=== PATIENT | female | born 1995 | race Caucasian/White ===

== ENCOUNTER → 2016-10-04 | Outpatient (CLI) | payer OTHER ==
--- NOTE | 2016-10-04 15:42 | US ---
EXAMINATION TYPE: US OB >= 14 wk fetus third trimester DATE OF EXAM: 10/04/2016 COMPARISON: None CLINICAL HISTORY: Z34.80 Supervision of other normal TECHNIQUE: Transabdominal (TA) GESTATIONAL AGE / DATING Physician Established: (36 weeks/5 days) EDC: 10/27/2016 Dates by LMP: unknown Dates by First Scan: this is first scan here Dates by Current Scan: (37 weeks/1 days) EDC: 10/24/2016 SURVEY IUP: Single PLACENTA: Posterior PREVIA: No Previa AGULIA: 15.3 cm Normal CERVICAL LENGTH (transabdominal: norm > 3.0cm): 3.3 cm BIOMETRY PRESENTATION: Vertex BPD: 8.9 cm 36 weeks / 1 days HC: 32.7 cm 37 weeks / 1 days AC: 34.0 cm 38 weeks / 0 days FL: 7.2 cm 37 weeks / 0 days ESTIMATED WEIGHT IN GRAMS: 3184 grams ESTIMATED WEIGHT IN LBS/OZS: 7 lbs. 0 oz. WEIGHT PERCENTAGE BASED ON ESTABLISHED DATES: 72% HC/AC: 1.0 Normal FL/AC: 21% Normal HEART RATE: 133 bpm RHYTHM: Normal Single live intrauterine gestation is confirmed. Normal cephalad presentation to fetus is present. Th ere is no ultrasound evidence for placenta previa. Amniotic fluid index is calculated within normal l imits. biometry measurements are concordant and felt within normal limits. IMPRESSION: As above
== END | disposition home or self-care (01) ==
LOC: RADUSWWP 14:54
PROVIDERS: ATTEND Obstetrics & Gynecology
DX: Z34.83 Encounter for supervision of other normal pregnancy, third trimester (principal); Z3A.37 37 weeks gestation of pregnancy
CPT/HCPCS: 76805

== ENCOUNTER 2018-05-13 15:48 | Emergency (ER) | payer OTHER ==
[2018-05-13] MEDS ORDERED: SODIUM CHLORIDE 0.9% 1,000 ML IV STA ×2 (16:21)
[2018-05-13] MEDS ORDERED: ONDANSETRON 4 MG/2 ML VIAL IVP STA (16:21)
[2018-05-13] MEDS ORDERED: KETOROLAC 30 MG/ML 1 ML VIAL IVP STA (16:21)
--- NOTE | 2018-05-13 16:41 | ED ---
General Adult HPI - General Chief complaint: Urogenital Stated complaint: Kidney infection Time Seen by Provider: 05/13/18 16:12 Source: patient Mode of arrival: ambulatory Limitations: no limitations - History of Present Illness Initial comments: This 22-year-old white female presented with a complaint of left flank pain. She states that this came on 4 days ago and was gradual in onset. She states that it is fairly severe and worse if she coughs or bears down. She denies any actual injuries. She also has had some nausea but no vomiting. She denies any known fever. She also has had a malodorous scent of her urine and is worried about a kidney infection. She states that she has had some increased urinary frequency but denies any hematuria or dysuria. She denies any previously known kidney infections. She states that she is not currently as she is on her period. No other complaints or modifying factors. - Related Data Home Medications Medication Instructions Recorded Confirmed Ibuprofen [Motrin Ib] 400 mg PO Q6HR PRN 05/13/18 05/13/18 Topiramate 50 mg PO HS 05/13/18 05/13/18 diphenhydrAMINE HCL [Benadryl] 25 mg PO DAILY PRN 05/13/18 05/13/18 Previous Rx's Medication Instructions Recorded Cyclobenzaprine [Flexeril] 10 mg PO TID PRN #20 tab 05/13/18 Ibuprofen [Motrin] 800 mg PO Q8H PRN #20 tab 05/13/18 Allergies Allergy/AdvReac Type Severity Reaction Status Date / Time banana Allergy Anaphylaxis Verified 05/13/18 16:08 Review of Systems ROS Statement: Those systems with pertinent positive or pertinent negative responses have been documented in the HPI. ROS Other: All systems not noted in ROS Statement are negative. Past Medical History Past Medical History: No Reported History, Asthma Additional Past Medical History / Comment(s): ovarian cyst History of Any Multi-Drug Resistant Organisms: None Reported Past Surgical History: No Surgical Hx Reported Past Anesthesia/Blood Transfusion Reactions: No Reported Reaction Past Psychological History: Depression Smoking Status: Former smoker Past Alcohol Use History: None Reported Past Drug Use History: Marijuana - Past Family History Mother Family Medical History: No Reported History General Exam - General Exam Comments Initial Comments: GENERAL: The patient is well nourished and well hydrated. VITAL SIGNS: Heart rate, blood pressure, respiratory rate reviewed as recorded in nurse's notes. EYES: Pupils are round and reactive. Extraocular movements are intact. No conjunctival / lid redness or swelling. ENT: No external evidence of injury, swelling, or ecchymosis. Airway is patent. Throat is clear. NECK: Nontender. No swelling or evidence of injury. No subcutaneous emphysema. Trachea is midline. No thyroid mass. HEART: Regular rate and rhythm. Good peripheral pulses. LUNGS/CHEST: Breath sounds clear and equal bilaterally. No rales, rhonchi, or wheezes. No ecchymosis, subcutaneous emphysema, or tenderness. ABDOMEN: Abdomen soft without tenderness. No palpable masses or organomegaly. No peritoneal signs. No abdominal wall swelling or ecchymosis. There is tenderness noted to the left flank. EXTREMITIES: No extremity tenderness. Normal muscle tone and function. No thoracolumbar tenderness. NEUROLOGIC: Sensation is grossly intact. Cranial nerve exam reveals face is symmetrical, tongue is midline, speech is clear. SKIN: No abrasions or ecchymosis is noted. No induration or masses noted. PSYCHIATRIC: Alert and oriented. Appropriate behavior and judgment. Limitations: no limitations Course Vital Signs 05/13/18 15:49 Temperature 98.2 F Pulse Rate 81 Respiratory 16 Rate Blood Pressure 128/84 O2 Sat by Pulse 97 Oximetry Medical Decision Making - Medical Decision Making The patient is seen and examined. All diagnostics are reviewed. An IV is started and she is hydrated. She received Zofran 4 mg IV as well as Toradol 30 mg IV. The laboratory was reviewed and is unremarkable. The computed tomography scan of the abdomen and pelvis does not show any acute abnormalities. The patient is feeling improved on recheck. The exact cause of her symptoms is not definitively determine but it is felt as though it is likely related to a musculoskeletal problem such as a back strain. She does request a work note and this is given. It is felt as though she is stable for discharge and leaves in no distress. - Lab Data Result diagrams: 05/13/18 16:50 05/13/18 16:50 Lab Results 05/13/18 05/13/18 05/13/18 Range/Units 16:50 16:50 16:50 WBC 4.1 (3.8-10.6) k/uL RBC 4.90 (3.80-5.40) m/uL Hgb 14.3 (11.4-16.0) gm/dL Hct 42.6 (34.0-46.0) % MCV 86.9 (80.0-100.0) fL MCH 29.1 (25.0-35.0) pg MCHC 33.5 (31.0-37.0) g/dL RDW 13.6 (11.5-15.5) % Plt Count 161 (150-450) k/uL Neutrophils % 44 % Lymphocytes % 38 % Monocytes % 10 % Eosinophils % 3 % Basophils % 0 % Neutrophils # 1.8 (1.3-7.7) k/uL Lymphocytes # 1.5 (1.0-4.8) k/uL Monocytes # 0.4 (0-1.0) k/uL Eosinophils # 0.1 (0-0.7) k/uL Basophils # 0.0 (0-0.2) k/uL Sodium 142 (137-145) mmol/L Potassium 3.8 (3.5-5.1) mmol/L Chloride 111 H (98-107) mmol/L Carbon Dioxide 22 (22-30) mmol/L Anion Gap 9 mmol/L BUN 12 (7-17) mg/dL Creatinine 0.83 (0.52-1.04) mg/dL Est GFR (CKD-EPI)AfAm >90 (>60 ml/min/1.73 sqM) Est GFR (CKD-EPI)NonAf >90 (>60 ml/min/1.73 sqM) Glucose 89 (74-99) mg/dL Calcium 9.5 (8.4-10.2) mg/dL Total Bilirubin 0.2 (0.2-1.3) mg/dL AST 19 (14-36) U/L ALT 17 (9-52) U/L Alkaline Phosphatase 62 (38-126) U/L Total Protein 6.4 (6.3-8.2) g/dL Albumin 4.1 (3.5-5.0) g/dL Urine Color Urine Appearance (Clear) Urine pH (5.0-8.0) Ur Specific [place] (1.001-1.035) Urine Protein (Negative) Urine Glucose (UA) (Negative) Urine Ketones (Negative) Urine Blood (Negative) Urine Nitrite (Negative) Urine Bilirubin (Negative) Urine Urobilinogen (<2.0) mg/dL Ur Leukocyte Esterase (Negative) Urine HCG, Qual Not Detected (Not Detectd) 05/13/18 Range/Units 16:50 WBC (3.8-10.6) k/uL RBC (3.80-5.40) m/uL Hgb (11.4-16.0) gm/dL Hct (34.0-46.0) % MCV (80.0-100.0) fL MCH (25.0-35.0) pg MCHC (31.0-37.0) g/dL RDW (11.5-15.5) % Plt Count (150-450) k/uL Neutrophils % % Lymphocytes % % Monocytes % % Eosinophils % % Basophils % % Neutrophils # (1.3-7.7) k/uL Lymphocytes # (1.0-4.8) k/uL Monocytes # (0-1.0) k/uL Eosinophils # (0-0.7) k/uL Basophils # (0-0.2) k/uL Sodium (137-145) mmol/L Potassium (3.5-5.1) mmol/L Chloride (98-107) mmol/L Carbon Dioxide (22-30) mmol/L Anion Gap mmol/L BUN (7-17) mg/dL Creatinine (0.52-1.04) mg/dL Est GFR (CKD-EPI)AfAm (>60 ml/min/1.73 sqM) Est GFR (CKD-EPI)NonAf (>60 ml/min/1.73 sqM) Glucose (74-99) mg/dL Calcium (8.4-10.2) mg/dL Total Bilirubin (0.2-1.3) mg/dL AST (14-36) U/L ALT (9-52) U/L Alkaline Phosphatase (38-126) U/L Total Protein (6.3-8.2) g/dL Albumin (3.5-5.0) g/dL Urine Color Light Yellow Urine Appearance Clear (Clear) Urine pH 5.5 (5.0-8.0) Ur Specific [place] 1.011 (1.001-1.035) Urine Protein Negative (Negative) Urine Glucose (UA) Negative (Negative) Urine Ketones Negative (Negative) Urine Blood Negative (Negative) Urine Nitrite Negative (Negative) Urine Bilirubin Negative (Negative) Urine Urobilinogen <2.0 (<2.0) mg/dL Ur Leukocyte Esterase Negative (Negative) Urine HCG, Qual (Not Detectd) Disposition Clinical Impression: Left flank pain, Nausea, Low back strain Disposition: HOME SELF-CARE Condition: Good Instructions (If sedation given, give patient instructions): Low Back Strain ( ED) Prescriptions: Cyclobenzaprine [Flexeril] 10 mg PO TID PRN #20 tab PRN Reason: Pain Ibuprofen [Motrin] 800 mg PO Q8H PRN #20 tab PRN Reason: Pain Is patient prescribed a controlled substance at d/c from ED?: No Referrals: Audi Mae MD [Primary Care Provider] - 1-2 days Time of Disposition: 19:04
[2018-05-13 17:05] LABS: Appearance,Urine Clear (Clear); Basophils % (A) 0 %; Bilirubin,Urine Negative (Negative); Blood,Urine Negative (Negative); Color,Urine Light Yellow; Eosinophils # (A) 0.1 k/uL (0-0.7); Eosinophils % (A) 3 %; Glucose,Urine (UA) Negative (Negative); HCT 42.6 % (34.0-46.0); HGB 14.3 gm/dL (11.4-16.0); Ketones,Urine Negative (Negative); Leukocyte Esterase,Urine Negative (Negative); Lymphocytes # (A) 1.5 k/uL (1.0-4.8); Lymphocytes % (A) 38 %; MCH 29.1 pg (25.0-35.0); MCHC 33.5 g/dL (31.0-37.0); MCV 86.9 fL (80.0-100.0); Mean Platelet Volume 8.7; Monocytes # (A) 0.4 k/uL (0-1.0); Monocytes % (A) 10 %; Neutrophils # (A) 1.8 k/uL (1.3-7.7); Neutrophils % (A) 44 %; Nitrite,Urine Negative (Negative); PH, Urine 5.5 (5.0-8.0); Platelet Count 161 k/uL (150-450); Protein,Urine Negative (Negative); RDW 13.6 % (11.5-15.5); Specific Gravity,Urine 1.011 (1.001-1.035); Urobilinogen,Urine <2.0 mg/dL (<2.0); WBC 4.1 k/uL (3.8-10.6)
[2018-05-13 17:13] LABS: ALT 17 U/L (9-52); AST 19 U/L (14-36); Albumin 4.1 g/dL (3.5-5.0); Alkaline Phosphatase 62 U/L (38-126); Anion Gap 9 mmol/L; Blood Urea Nitrogen 12 mg/dL (7-17); Calcium 9.5 mg/dL (8.4-10.2); Carbon Dioxide 22 mmol/L (22-30); Chloride 111 mmol/L (98-107); Glucose 89 mg/dL (74-99); Potassium 3.8 mmol/L (3.5-5.1); Sodium 142 mmol/L (137-145); Total Bilirubin 0.2 mg/dL (0.2-1.3); Total Protein 6.4 g/dL (6.3-8.2)
--- NOTE | 2018-05-13 18:21 | CT ---
EXAMINATION TYPE: CT abdomen pelvis wo con DATE OF EXAM: 05/13/2018 COMPARISON: None HISTORY: LEFT FLANK PAIN X5 DAYS CT DLP: 827.3 mGycm Automated exposure control for dose reduction was used. TECHNIQUE: Helical acquisition of images was performed from the lung bases through the pelvis. FINDINGS: Within the limits of noncontrast CT the following observations are made: LUNG BASES: No significant abnormality is appreciated. LIVER/GB: No significant abnormality is appreciated. PANCREAS: No significant abnormality is seen. SPLEEN: No significant abnormality is seen. ADRENALS: No significant abnormality is seen. KIDNEYS: No significant abnormality is seen. FREE AIR: No free air is visualized RETROPERITONEAL ADENOPATHY: None visualized REPRODUCTIVE ORGANS: No significant abnormality is seen. A vaginal tampon is noted. URINARY BLADDER: No significant abnormality is seen. PELVIC ADENOPATHY: None visualized. OSSEOUS STRUCTURES: No significant abnormality is seen. BOWEL: No significant abnormality is seen. IMPRESSION: NO ACUTE PROCESS. NO CT CORRELATE FOR THE PATIENT'S LEFT-SIDED FLANK PAIN.
[2018-05-13 19:22] VITALS: BP 132/68; PULSE 78; RESP 18; TEMP 98.4
== END 2018-05-13 19:22 | disposition home or self-care (01) ==
LOC: EC 15:48
DX: S39.012A Strain of muscle, fascia and tendon of lower back, initial encounter (principal); R10.9 Unspecified abdominal pain; R11.0 Nausea; Z87.891 Personal history of nicotine dependence; Z79.899 Other long term (current) drug therapy; Z91.018 Allergy to other foods
CPT/HCPCS: 36415; 80053; 85025; 81003; 81025; 87086; 74176; 99284; 96374; 96375; 96361 ×2; J2405; J1885

== ENCOUNTER 2018-10-25 20:55 | Emergency (ER) | payer OTHER ==
[2018-10-25 22:17] LABS: ALT 11 U/L (9-52); AST 16 U/L (14-36); African American GFR (CKD) >90 (>60 ml/min/1.73 sqM); Albumin 3.5 g/dL (3.5-5.0); Alkaline Phosphatase 49 U/L (38-126); Anion Gap 5 mmol/L; Blood Urea Nitrogen 9 mg/dL (7-17); Calcium 8.5 mg/dL (8.4-10.2); Carbon Dioxide 25 mmol/L (22-30); Chloride 110 mmol/L (98-107); Glucose 89 mg/dL (74-99); Potassium 3.5 mmol/L (3.5-5.1); Sodium 140 mmol/L (137-145); Total Bilirubin 0.3 mg/dL (0.2-1.3); Total Protein 5.4 g/dL (6.3-8.2)
[2018-10-25 22:24] LABS: Basophils % (A) 0 %; Eosinophils # (A) 0.3 k/uL (0-0.7); Eosinophils % (A) 2 %; HCT 38.5 % (34.0-46.0); Lymphocytes # (A) 2.8 k/uL (1.0-4.8); Lymphocytes % (A) 24 %; MCH 28.5 pg (25.0-35.0); MCHC 33.7 g/dL (31.0-37.0); MCV 84.7 fL (80.0-100.0); Monocytes # (A) 0.7 k/uL (0-1.0); Monocytes % (A) 6 %; Neutrophils # (A) 7.8 k/uL (1.3-7.7); Neutrophils % (A) 67 %; Platelet Count 167 k/uL (150-450); RBC 4.55 m/uL (3.80-5.40); RDW 15.3 % (11.5-15.5); WBC 11.7 k/uL (3.8-10.6)
--- NOTE | 2018-10-25 23:07 | ED ---
Abdominal Pain HPI - General Source: patient Mode of arrival: ambulatory <Kamryn Jean - Last Filed: 10/26/18 02:29> <Kindra Nicholson - Last Filed: 10/27/18 05:00> - General Chief Complaint: Abdominal Pain Stated Complaint: Early Bleeding Time Seen by Provider: 10/25/18 21:34 - History of Present Illness Initial Comments: 22-year-old female presenting today for chief complaint of . A2 Patient states she had positive test at home. She states she has had cramping and bleeding today. Patient states her last menstrual period was about a month ago. Patient denies vomiting, severe abdominal pain chest pain stress breath per she describes the cramping as period like. Patient denies vaginal discharge, pain with sex, vaginal odor. Remaining review of systems negative upon arrival patient appears well no signs of acute distress (Kamryn Jean) - Related Data Home Medications Medication Instructions Recorded Confirmed Pnv No.95/Ferrous Fum/Folic AC 1 tab PO DAILY 10/25/18 10/25/18 [ Multivitamin Tablet] Potassium 99 mg PO DAILY 10/25/18 10/25/18 Allergies Allergy/AdvReac Type Severity Reaction Status Date / Time banana Allergy Anaphylaxis Verified 10/25/18 21:21 Review of Systems ROS Other: All systems not noted in ROS Statement are negative. <Kamryn Jean - Last Filed: 10/26/18 02:29> ROS Other: All systems not noted in ROS Statement are negative. <Kindra Nicholson - Last Filed: 10/27/18 05:00> ROS Statement: Those systems with pertinent positive or pertinent negative responses have been documented in the HPI. Past Medical History Past Medical History: No Reported History, Asthma Additional Past Medical History / Comment(s): ovarian cyst History of Any Multi-Drug Resistant Organisms: None Reported Past Surgical History: No Surgical Hx Reported Past Anesthesia/Blood Transfusion Reactions: No Reported Reaction Past Psychological History: Depression Smoking Status: Former smoker Past Alcohol Use History: None Reported Past Drug Use History: Marijuana - Past Family History Mother Family Medical History: No Reported History <Kamryn Jean - Last Filed: 10/26/18 02:29> General Exam <Kamryn Jean - Last Filed: 10/26/18 02:29> - General Exam Comments Initial Comments: General: The patient is awake and alert, in no distress, and does not appear acutely ill. Eye: +3 mm pupils are equal, round and reactive to light, extra-ocular movements are intact. No nystagmus. There is normal conjunctiva bilaterally. No signs of icterus. Ears, nose, mouth and throat: There are moist mucous membranes and no oral lesions. Neck: The neck is supple, there is no tenderness or JVD. Cardiovascular: There is a regular rate and rhythm. No murmur, rub or gallop is appreciated. Respiratory: Lungs are clear to auscultation, respirations are non-labored, breath sounds are equal. No wheezes, stridor, rales, or rhonchi. Gastrointestinal: Soft, non-distended, non-tender abdomen without masses or organomegaly noted. There is no rebound or guarding present. No CVA tenderness. Bowel sounds are unremarkable. Pelvic: No external lesions, cervical os closed. Blood in the vaginal vault. No adnexal or cervical motion tenderness. No discharge or odor. Musculoskeletal: Normal ROM, no tenderness. Strength 5/5. Sensation intact. Pu lses equal bilaterally 2+. Neurological: A&O x 3. CN II-XII intact, There are no obvious motor or sensory deficits. Coordination appears grossly intact. Speech is normal. Skin: Skin is warm and dry and no rashes or lesions are noted. Psychiatric: Cooperative, appropriate mood & affect, normal judgment. (Kamryn Jean) Course Vital Signs 10/25/18 10/26/18 21:11 00:04 Temperature 98.6 F 98.0 F Pulse Rate 90 69 Respiratory 16 18 Rate Blood Pressure 133/81 109/70 O2 Sat by Pulse 99 99 Oximetry Medical Decision Making - Lab Data Result diagrams: 10/25/18 21:46 10/25/18 21:46 <Kamryn Jean - Last Filed: 10/26/18 02:29> - Lab Data Result diagrams: 10/25/18 21:46 10/25/18 21:46 <Kindra Nicholson - Last Filed: 10/27/18 05:00> - Medical Decision Making 22-year-old female presented for . She states she had a positive home test. Last menstrual period was September 23. Urine HCG (-) US (-) for . Blood type B+. Patient labs stable. At this time I feel this is most likely miscarriage vs menstruation given amount of bleeding. Patient is to f/u with OBGYN and return for worsening pain to the ER. She is agreeable care plan discharge at this time. (Kamryn Jean) I was available for consultation in the emergency department. The history and physical exam were done by the Midlevel Provider. Medical decision making was done by the Midlevel Provider. I have reviewed the chart, however was not consulted specifically or made aware of this patient by the above midlevel provider and did not personally evaluate, interact with, or disposition this patient on the day of their visit Chart was dictated using [employer] dictation software. Attempts were made to corre ct any dictation errors however some typographical errors may persist. (Kindra Nicholson) - Lab Data Lab Results 10/25/18 10/25/18 10/25/18 Range/Units 21:46 21:46 21:46 WBC 11.7 H (3.8-10.6) k/uL RBC 4.55 (3.80-5.40) m/uL Hgb 13.0 (11.4-16.0) gm/dL Hct 38.5 (34.0-46.0) % MCV 84.7 (80.0-100.0) fL MCH 28.5 (25.0-35.0) pg MCHC 33.7 (31.0-37.0) g/dL RDW 15.3 (11.5-15.5) % Plt Count 167 (150-450) k/uL Neutrophils % 67 % Lymphocytes % 24 % Monocytes % 6 % Eosinophils % 2 % Basophils % 0 % Neutrophils # 7.8 H (1.3-7.7) k/uL Lymphocytes # 2.8 (1.0-4.8) k/uL Monocytes # 0.7 (0-1.0) k/uL Eosinophils # 0.3 (0-0.7) k/uL Basophils # 0.0 (0-0.2) k/uL Sodium 140 (137-145) mmol/L Potassium 3.5 (3.5-5.1) mmol/L Chloride 110 H (98-107) mmol/L Carbon Dioxide 25 (22-30) mmol/L Anion Gap 5 mmol/L BUN 9 (7-17) mg/dL Creatinine 0.73 (0.52-1.04) mg/dL Est GFR (CKD-EPI)AfAm >90 (>60 ml/min/1.73 sqM) Est GFR (CKD-EPI)NonAf >90 (>60 ml/min/1.73 sqM) Glucose 89 (74-99) mg/dL Calcium 8.5 (8.4-10.2) mg/dL Total Bilirubin 0.3 (0.2-1.3) mg/dL AST 16 (14-36) U/L ALT 11 (9-52) U/L Alkaline Phosphatase 49 (38-126) U/L Total Protein 5.4 L (6.3-8.2) g/dL Albumin 3.5 (3.5-5.0) g/dL Urine HCG, Qual (Not Detectd) Trichomonas Ag (Rapid) (Negative) Blood Type O Positive Blood Type Recheck No Antibody Screen NEGATIVE Spec Expiration Date 10/28/2018 - 234510/25/18 10/26/18 Range/Units 21:50 00:03 WBC (3.8-10.6) k/uL RBC (3.80-5.40) m/uL Hgb (11.4-16.0) gm/dL Hct (34.0-46.0) % MCV (80.0-100.0) fL MCH (25.0-35.0) pg MCHC (31.0-37.0) g/dL RDW (11.5-15.5) % Plt Count (150-450) k/uL Neutrophils % % Lymphocytes % % Monocytes % % Eosinophils % % Basophils % % Neutrophils # (1.3-7.7) k/uL Lymphocytes # (1.0-4.8) k/uL Monocytes # (0-1.0) k/uL Eosinophils # (0-0.7) k/uL Basophils # (0-0.2) k/uL Sodium (137-145) mmol/L Potassium (3.5-5.1) mmol/L Chloride (98-107) mmol/L Carbon Dioxide (22-30) mmol/L Anion Gap mmol/L BUN (7-17) mg/dL Creatinine (0.52-1.04) mg/dL Est GFR (CKD-EPI)AfAm (>60 ml/min/1.73 sqM) Est GFR (CKD-EPI)NonAf (>60 ml/min/1.73 sqM) Glucose (74-99) mg/dL Calcium (8.4-10.2) mg/dL Total Bilirubin (0.2-1.3) mg/dL AST (14-36) U/L ALT (9-52) U/L Alkaline Phosphatase (38-126) U/L Total Protein (6.3-8.2) g/dL Albumin (3.5-5.0) g/dL Urine HCG, Qual Not Detected (Not Detectd) Trichomonas Ag (Rapid) Negative (Negative) Blood Type Blood Type Recheck Antibody Screen Spec Expiration Date Disposition Is patient prescribed a controlled substance at d/c from ED?: No Time of Disposition: 23:13 <Kamryn Jean L - Last Filed: 10/26/18 02:29> <Kindra Nicholson P - Last Filed: 10/27/18 05:00> Clinical Impression: Threatened miscarriage Disposition: HOME SELF-CARE Condition: Good Instructions (If sedation given, give patient instructions): Threatened Miscarriage (ED) Additional Instructions: Please use medication as discussed. Please follow-up with OBGYN within next 1-2 weeks. Please return to emergency room if the symptoms increase or worsen or for any other concerns. Referrals: Audi Mae MD [Primary Care Provider] - 1-2 days Brianna Vera DO [Doctor of Osteopathic Medicine] - 1-2 days
--- NOTE | 2018-10-25 23:08 | US ---
EXAM: US First Trimester, Transabdominal CLINICAL HISTORY: ITS.REASON US Reason: pain TECHNIQUE: Real-time transabdominal obstetrical ultrasound of the maternal pelvis and a first trimester with image documentation. COMPARISON: None. FINDINGS: Gestation: Not visualized. Placenta/amniotic fluid: Not visualized. Uterus/cervix: Uterus measures 7.9 x 4.6 x 5.7 cm. Endometrial stripe measures 5 mm and appears normal. No myometrial mass. Ovaries: Right ovary measures 2.5 x 1.3 x 1.6 cm. Left ovary measures 3.7 x 1.3 x 1.7 cm. Left adnexal cystic lesion measuring up to 1.9 cm. No mass. Free fluid: No free fluid. IMPRESSION: No intrauterine identified. This may represent an early normal or abnormal . Clinical correlation is recommended. Recommend follow-up dating ultrasound at approximately 8-10 weeks gestational age.
[2018-10-26 00:07] VITALS: BP 109/70; PULSE 69; RESP 18; TEMP 98
[2018-10-27 14:18] LABS: C. trachomatis,PCR Negative (Neg,Equiv); Chlamydia trachomatis Source Vagina
[2018-10-27 14:19] LABS: N. gonorrhoeae,PCR Negative (Neg,Equiv); Neisseria Source Vagina
== END 2018-10-26 00:07 | disposition home or self-care (01) ==
LOC: EC 20:55
DX: O20.0 Threatened abortion (principal); Z3A.00 Weeks of gestation of pregnancy not specified; Z87.42 Personal history of other diseases of the female genital tract; Z87.891 Personal history of nicotine dependence; Z91.018 Allergy to other foods
CPT/HCPCS: 36415; 76801; 80053; 81025; 85025; 86850; 86900; 86901; 87070; 87205; 87491; 87591; 87808; 99284

== ENCOUNTER 2019-07-23 06:15 | Inpatient (IN) | payer OTHER ==
[2019-07-23] MEDS ORDERED: LIDOCAINE 0.5% (PF) 5 MG/ML (50 ML SDV) SQ PRN (06:42)
[2019-07-23] MEDS ORDERED: TERBUTALINE 1 MG/ML VIAL SQ PRN (06:42)
[2019-07-23] MEDS ORDERED: METHYLERGONOVINE 0.2 MG/ML 1 ML AMP IM PRN (06:42)
[2019-07-23] MEDS ORDERED: PENICILLIN G POTASSIUM 5,000,000 UNIT in DEXTROSE 5% IN WATER 100 ML IVPB STA ×2 (06:42)
[2019-07-23] MEDS ORDERED: OXYTOCIN 10 UNIT/ML 1 ML VIAL IM PRN (06:42)
[2019-07-23] MEDS ORDERED: CARBOPROST TROMETHAMINE 250 MCG/ML 1 ML AMP IM PRN (06:42)
[2019-07-23] MEDS ORDERED: OXYTOCIN 30 UNITS/500 ML NS 30 UNIT in SALINE 1 500ML.BAG IV SCH (06:45)
[2019-07-23] MEDS: LACTATED RINGERS 1,000 ML IV SCH ×2 (06:48→15:46)
[2019-07-23 07:28] LABS: Basophils % (A) 0 %; Eosinophils # (A) 0.1 k/uL (0-0.7); Eosinophils % (A) 1 %; HCT 37.2 % (34.0-46.0); HGB 12.4 gm/dL (11.4-16.0); Lymphocytes # (A) 1.4 k/uL (1.0-4.8); Lymphocytes % (A) 12 %; MCH 28.9 pg (25.0-35.0); MCHC 33.3 g/dL (31.0-37.0); MCV 86.6 fL (80.0-100.0); Mean Platelet Volume 9.8; Monocytes # (A) 0.6 k/uL (0-1.0); Monocytes % (A) 5 %; Neutrophils # (A) 9.9 k/uL (1.3-7.7); Neutrophils % (A) 81 %; Platelet Count 151 k/uL (150-450); RDW 13.6 % (11.5-15.5); WBC 12.3 k/uL (3.8-10.6)
[2019-07-23] MEDS ORDERED: BUTORPHANOL 1 MG/ML 1 ML VIAL IV PRN (09:10)
--- NOTE | 2019-07-23 09:10 | P.HPOB ---
History of Present Illness H&P Date: 07/23/19 Chief Complaint: 39+ weeks, elective induction The patient is a 23-year-old 5 para 2021 admitted at 39+ weeks as established by early ultrasound. She is admitted for elective induction of labor with all signs reassuring. Her has been essentially uncomplic ated though she is group B strep positive and antibiotic prophylaxis has been started. On labor and delivery, all signs are reassuring. Obstetrical history: 5 para 2021 with 2 previous term vaginal deliveries without complications. She additionally had 2 early miscarriages not requiring D&C. Current statistics are listed in history of present illness. EDC of 07/28/2019 was established by an early first trimester ultrasound and confirmed by a 13 week ultrasound. Laboratory workup demonstrates a blood type of O+ with a negative antibody screen. Rubella status is immune. The remainder of laboratory workup was within normal limits aside from a positive urine culture which was treated and cured. Early Glucola was within normal limits as was second trimester Glucola. Group B strep status is positive. Gynecologic history: No history of any infections to include STDs. Review of Systems Review of systems is confined to history of present illness. Past Medical History Past Medical History: No Reported History, Asthma Additional Past Medical History / Comment(s): ovarian cyst History of Any Multi-Drug Resistant Organisms: None Reported Past Surgical History: No Surgical Hx Reported Past Anesthesia/Blood Transfusion Reactions: No Reported Reaction Past Psychological History: Depression Smoking Status: Current every day smoker Past Alcohol Use History: None Reported Past Drug Use History: Marijuana Additional Drug Use History / Comment(s): Pt reports last use of marijuana on 07/22/19 - Past Family History Mother Family Medical History: No Reported History Medications and Allergies Home Medications Medication Instructions Recorded Confirmed Type Pnv No.95/Ferrous Fum/Folic AC 1 tab PO DAILY 10/25/18 07/23/19 History [ Multivitamin Tablet] Potassium 99 mg PO DAILY 10/25/18 07/23/19 History Sertraline HCl [Zoloft] 50 mg PO ONCE 07/23/19 07/23/19 History Allergies Allergy/AdvReac Type Severity Reaction Status Date / Time banana Allergy Anaphylaxis Verified 07/23/19 06:40 Exam Vital Signs Temp Pulse Resp BP Pulse Ox 07/23/19 06:39 98.3 F 86 16 139/70 97 Intake and Output 07/22/19 07/23/19 07/23/19 22:59 06:59 14:59 Other: Weight 104.326 kg In general, this is a well-developed, moderately obese white female in no acute distress. Her heart has a regular rhythm and rate without murmur. Her lungs clear to auscultation bilaterally in all stinson. Her abdomen is gravid, nondistended, has normal active bowel sounds, is soft, nontender, and without any palpable masses aside from uterine fundus. Her extremities are without any cyanosis, clubbing, or significant edema and are nontender to palpation bilaterally. Digital cervical examination demonstrates her cervix to be approximately 2+ centimeters dilated, 50% effaced, with the vertex in presentation at -2 station though the cervix is somewhat posterior. Artificial rupture of membranes is carried out demonstrating clear fluid. Results Result Diagrams: 07/23/19 06:49 Abnormal Lab Results - Last 24 Hours (Table) 07/23/19 Range/Units 06:49 WBC 12.3 H (3.8-10.6) k/uL Neutrophils # 9.9 H (1.3-7.7) k/uL Assessment and Plan (1) Term Current Visit: Yes Status: Acute Code(s): Z34.90 - ENCNTR FOR SUPRVSN OF NORMAL , UNSP, UNSP TRIMESTER SNOMED Code(s): 76483574 (2) Group B streptococcal infection in Current Visit: Yes Status: Acute Code(s): O98.819 - OTH MATERNAL INFEC/PARASTC DISEASES COMP PREG, UNSP TRI; B95.1 - STREPTOCOCCUS, GROUP B, CAUSING DISEASES CLASSD [id number] SNOMED Code(s): 058421832 Plan: The patient is admitted for elective induction of labor. She has been counseled regarding the potentially slightly increased risk for delivery and has agreed to proceed. Pitocin augmentation has been started and she has undergone artificial rupture membranes. She will have close maternal and surveillance and expectant management will be practiced. She has had antibiotic prophylaxis started for group B strep positivity. She is a good candidate for either IV or epidural analgesia, whichever she may choose.
[2019-07-23] MEDS ORDERED: PSEUDOEPHEDRINE 12HR 120 MG TABLET.ER PO STA (10:42)
[2019-07-23] MEDS: PENICILLIN G POTASSIUM 2,500,000 UNIT in DEXTROSE 5% IN WATER 100 ML IVPB SCH ×4 (11:31→15:48)
[2019-07-23] MEDS ORDERED: HYDROcodone/APAP 5-325MG 1 EACH TAB PO PRN (13:59)
[2019-07-23] MEDS ORDERED: diphenhydrAMINE 25 MG CAP PO PRN (13:59)
[2019-07-23] MEDS ORDERED: diphenhydrAMINE 50 MG CAP PO PRN (13:59)
[2019-07-23] MEDS ORDERED: diphenhydrAMINE 50 MG/ML 1 ML VIAL IVP PRN ×2 (13:59)
[2019-07-23] MEDS ORDERED: HYDROcodone/APAP 7.5-325MG 1 EACH TAB PO PRN (13:59)
[2019-07-23] MEDS ORDERED: LANOLIN CREAM 5 GM TUBE TOPICAL PRN (13:59)
[2019-07-23] MEDS ORDERED: HYDROCORTISONE 2.5% RECTAL CREAM 30 GM TUBE RECTAL PRN (13:59)
[2019-07-23] MEDS ORDERED: SIMETHICONE 80 MG CHEWABLE PO PRN (13:59)
[2019-07-23] MEDS ORDERED: BENZOCAINE/MENTHOL SPRAY 1 GM/SPRAY AEROSOL TOPICAL PRN (13:59)
[2019-07-23] MEDS ORDERED: ACETAMINOPHEN TAB 325 MG TAB PO PRN (13:59)
[2019-07-23] MEDS ORDERED: ZOLPIDEM 5 MG TAB PO PRN (13:59)
[2019-07-23] MEDS ORDERED: WITCH HAZEL 1 EACH MED..PAD TOPICAL PRN (13:59)
[2019-07-23] MEDS ORDERED: OXYTOCIN 20 UNITS/1000 ML NS 1,000 ML IV SCH (14:00)
--- NOTE | 2019-07-23 14:02 | P.PROBDLV ---
Vaginal Delivery Note - . Vaginal Delivery Note: The patient is a 23-year-old 5 para 2021 admitted at 39-2/7 weeks as established by good dating parameters perches admitted for elective induction of labor with favorable cervix and an uncomplicated . On admission, all signs reassuring. She had Pitocin augmentation started and underwent artificial rupture of membranes for clear fluid. She made fairly quick progress through the latent and active phase of labor and progressed to complete where after she pushed over the course of approximately 2 contractions to a normal spontaneous vaginal delivery of a viable 7 lbs. 14 oz. baby boy with Apgars of 9 at 1 minute and 9 at 5 minutes delivered in the direct occiput anterior position. The placenta was delivered spontaneously, intact, and grossly normal with a grossly normal three-vessel cord inserted approximately 3 cm from the margin of the ryan cental disc. There were no lacerations of the perineum, vagina, or cervix. Estimated blood loss for the case is approximately 200 mL. There were no complications. Both mother and infant are resting comfortably in recovery.
[2019-07-23] MEDS: IBUPROFEN 600 MG TAB PO PRN ×2 (14:37→23:16)
[2019-07-23] MEDS: SENNOSIDES-DOCUSATE SODIUM 1 EACH TAB PO SCH (19:33)
[2019-07-24 01:14] VITALS: RESP 16
[2019-07-24] MEDS: SENNOSIDES-DOCUSATE SODIUM 1 EACH TAB PO SCH (07:35)
[2019-07-24] MEDS: IBUPROFEN 600 MG TAB PO PRN ×2 (07:36→15:18)
[2019-07-24 08:08] VITALS: BP 128/71; PULSE 66; TEMP 96.6
--- NOTE | 2019-07-24 12:11 | P.DS ---
Providers Date of admission: 07/23/19 06:30 Expected date of discharge: 07/24/19 Attending physician: Rudi Thomas Primary care physician: Stated None - Discharge Diagnosis(es) (1) Term Current Visit: Yes Status: Acute (2) Group B streptococcal infection in Current Visit: Yes Status: Acute (3) Normal vaginal delivery Current Visit: Yes Status: Acute Hospital Course: The patient is a 23-year-old 5 para 2021 admitted at 39-2/7 weeks by good dating parameters. She is admitted for an elective induction with all signs reassuring. Her is uncomplicated though she is group B strep positive. On labor and delivery, all signs are reassuring. She had antibody prophylaxis started for group B strep is well as Pitocin augmentation started. She then underwent artificial rupture of membranes for clear fluid. She made steady progress through the latent and active phases of labor and ultimately progressed to complete. She then pushed over the course of a couple of contractions to a normal spontaneous vaginal delivery of a viable 7 lbs. 14 oz. boy with Apgars of 9 at 1 minute and 9 at 5 minutes. Her course was unremarkable with vital signs remaining stable and her temperature was afebrile throughout. She was deemed stable for discharge on day 1 was discharged home to follow-up in the office in 6 weeks' time routinely. Discharge instructions included calling for any significantly increased bleeding or foul-smelling lochia, significantly increased fever abdominal pain, perineal complaints, breast complaints, or anything else that concerned her. She was additionally instructed to have nothing in the vagina for at least 6 weeks time to include intercourse. She understood her instructions and agrees to follow up as noted above. Discharge medications included [id number] analgesic pain medications as well as continued vitamins as she has opted to breast- feed. Maternal blood type is O+ and rubella status is immune. Procedures: #1. Antibiotic prophylaxis #2. Pitocin induction #3. Artificial rupture of membranes #4. Normal spontaneous vaginal delivery Patient Condition at Discharge: Good Plan - Discharge Summary New Discharge Prescriptions: No Action Potassium 99 mg PO DAILY Pnv No.95/Ferrous Fum/Folic AC [ Multivitamin Tablet] 1 tab PO DAILY Sertraline HCl [Zoloft] 50 mg PO ONCE Discharge Medication List Pnv No.95/Ferrous Fum/Folic AC [ Multivitamin Tablet] 1 tab PO DAILY 10/25/18 [History] Potassium 99 mg PO DAILY 10/25/18 [History] Sertraline HCl [Zoloft] 50 mg PO ONCE 07/23/19 [History] Follow up Appointment(s)/Referral(s): Rudi Thomas MD [STAFF PHYSICIAN] - 6 Weeks Discharge Disposition: HOME SELF-CARE
== END 2019-07-24 16:00 | disposition home or self-care (01) | DRG 807 ==
LOC: 4FBP 06:30
PROVIDERS: ADMIT Obstetrics & Gynecology; ATTEND Obstetrics & Gynecology
PROC: 10907ZC Drainage of Amniotic Fluid, Therapeutic from Products of Conception, Via Natural or Artificial Opening (ICD-10-PCS; principal; 2019-07-23)
PROC: 10E0XZZ Delivery of Products of Conception, External Approach (ICD-10-PCS; principal; 2019-07-23)
DX: O99.824 Streptococcus B carrier state complicating childbirth (principal); Z37.0 Single live birth; O99.344 Other mental disorders complicating childbirth; F32.9 Major depressive disorder, single episode, unspecified; F17.200 Nicotine dependence, unspecified, uncomplicated; O99.334 Smoking (tobacco) complicating childbirth; Z3A.39 39 weeks gestation of pregnancy; O99.214 Obesity complicating childbirth; E66.9 Obesity, unspecified; Z91.018 Allergy to other foods
CPT/HCPCS: 85025; 86850; 86900; 86901

== ENCOUNTER 2019-11-10 07:31 | Day surgery (SDC) | payer OTHER ==
--- NOTE | 2019-11-05 15:56 | HP ---
HISTORY AND PHYSICAL DATE OF SURGERY: 11/10/2019 HISTORY OF PRESENT ILLNESS: The patient is a 5, para 3-0-2-3, who is relatively recently and has requested permanent sterilization. She understands the permanent nature of the procedure and that there are both short- and long-term reversible options available. She otherwise has no ongoing gynecologic complaints. PAST MEDICAL HISTORY: Past medical history is significant for carpal tunnel syndrome, primarily during , as well as a history of migraine headaches in the past. PAST SURGICAL HISTORY: None. BLOCKER AUTOMATIC HISTORY: 5, para 3-0-2-3, with 3 term vaginal deliveries without complications. She additionally also had 2 early miscarriages, not requiring D&C. Gynecologic history is unremarkable, with no history of any infections to include STDs by history. FAMILY HISTORY: Noncontributory. SOCIAL HISTORY: The patient is single and does admit to marijuana as well as regular tobacco smoking. She has a history of other substance abuse, but nothing recent. CURRENT MEDICATIONS: Current medications include Depo-Provera 150 mg IM every 3 months. ALLERGIES: NO KNOWN DRUG ALLERGIES. REVIEW OF SYSTEMS: Confined to history of present illness. PHYSICAL EXAMINATION: Vital signs are stable. The patient is afebrile. In general, this is a well- developed, well-nourished, mild to moderately obese white female in no acute distress. Her heart has a regular rhythm and rate without murmur. Her lungs are clear to auscultation bilaterally in all stinson. Her abdomen is nondistended, has normoactive bowel sounds, is soft, nontender, and without any palpable masses, hepatosplenomegaly or hernias. Her extremities are without any cyanosis, clubbing or edema and are nontender to palpation bilaterally. Bimanual pelvic examination demonstrates normal external genitalia and BUS with normal vaginal mucosa and cervix. There is no cervical motion tenderness. The uterus is approximately 5-6 weeks in size, mid plane, mobile, nontender and normal in shape. The adnexa are normal and nontender without mass bilaterally. ASSESSMENT AND PLAN: Multiparity, undesired fertility: The patient has requested bilateral tubal occlusion with Filshie clips using the laparoscope. The risks and complications of the procedure have been thoroughly discussed, including the risk for bleeding, bleeding requiring transfusion, infection, and injury to local structures to specifically include the bowel, bladder and ureters. She has understood all these risks and agreed to proceed. She also understands the permanent nature of the procedure as well as potential risk for ectopic . MMODL / IJN: [id number] /
[2019-11-07 13:36] VITALS: BMI 36.6
[~2019-11-10 07:31] MED LIST: DEXAMETHASONE SOD PHOSPHATE 10 MG/ML 1 ML VIAL IV ONE; LACTATED RINGERS 1,000 ML IV SCH; LIDOCAINE 1% (10MG/ML) FOR IV START INTRADERMA PRN; ONDANSETRON 4 MG/2 ML VIAL IVP ONE; Pre Op ABX Message 1 EACH MISC MISCELLANE ONE; SCOPOLAMINE 1.5MG/72HR PATCH TRANSDERM ONE
[2019-11-10] MEDS ORDERED: ONDANSETRON 4 MG/2 ML VIAL ONE (08:19)
[2019-11-10] MEDS ORDERED: BUPIVACAINE (PF) 0.5% 30 ML VIAL SQ ONE ×2 (08:55→09:41)
[2019-11-10] MEDS ORDERED: LIDOCAINE 1% INJ 10MG/ML (20 ML MDV) ONE (09:08)
[2019-11-10] MEDS ORDERED: PROPOFOL 10 MG/ML 20 ML VIAL IV ONE (09:08)
[2019-11-10] MEDS ORDERED: MIDAZOLAM 2 MG/2 ML VIAL ONE (09:08)
[2019-11-10] MEDS ORDERED: NEOSTIGMINE 1 MG/ML 10 ML VIAL ONE (09:08)
[2019-11-10] MEDS ORDERED: GLYCOPYRROLATE 0.2 MG/ML 2 ML VIAL ONE (09:08)
[2019-11-10] MEDS ORDERED: ROCURONIUM BROMIDE 10 MG/ML 5 ML VIAL IV ONE (09:08)
[2019-11-10] MEDS ORDERED: fentaNYL (PF) 50 MCG/ML 2 ML AMP ONE (09:08)
[2019-11-10] MEDS ORDERED: KETOROLAC 30 MG/ML 1 ML VIAL ONE (09:08)
[2019-11-10] MEDS ORDERED: SUCCINYLCHOLINE CHLORIDE 100 MG/5 ML SYR IV ONE (09:08)
[2019-11-10] MEDS ORDERED: HYDROmorphone (PF) 1 MG/ML ONE (09:08)
[2019-11-10] MEDS ORDERED: KETOROLAC 30 MG/ML 1 ML VIAL IVP PRN (09:45)
[2019-11-10] MEDS ORDERED: IBUPROFEN 600 MG TAB PO PRN (09:45)
[2019-11-10] MEDS ORDERED: Acetaminophen-Codeine 300-30mg TAB PO PRN ×2 (09:45)
[2019-11-10] MEDS ORDERED: METOCLOPRAMIDE 5 MG/ML 2 ML VIAL IVP PRN (09:45)
[2019-11-10] MEDS ORDERED: ONDANSETRON 4 MG/2 ML VIAL IVP PRN (09:45)
[2019-11-10] MEDS ORDERED: diphenhydrAMINE 50 MG/ML 1 ML VIAL IVP PRN (09:45)
[2019-11-10] MEDS ORDERED: SIMETHICONE 80 MG CHEWABLE PO PRN (09:45)
--- NOTE | 2019-11-10 09:51 | P.OP ---
Date of Procedure: 11/10/19 Preoperative Diagnosis: #1. Multiparity, undesired fertility Postoperative Diagnosis: Same Procedure(s) Performed: #1. Laparoscopic bilateral tubal occlusion with Filshie clips Anesthesia: YASMANIA Surgeon: Rudi Thomas Estimated Blood Loss (ml): 5 IV fluids (ml): 600 Urine output (ml): 20 Pathology: none sent Condition: stable Disposition: PACU Operative Findings: Preoperative pelvic examination demonstrated a roughly 4-5 week anteverted mobile normal shaped uterus with normal adnexa bilaterally. These findings were confirmed intra-operatively with a normal uterus, tubes, and ovaries. There is no evidence of endometriosis or any other pathology in the pelvis. A Filshie clip was firmly placed across the isthmic portion of each fallopian tube. The small and large bowel as well as appendix and liver and diaphragm were all entirely normal to inspection. Description of Procedure: The patient was prepped and draped in usual fashion after general endotracheal anesthesia was administered by the anesthesiologist. A speculum was placed after draining the bladder approximately 20 mL of clear carito urine. The anterior lip of the cervix was grasped with a single-tooth tenaculum and an acorn cannula placed for manipulation. Attention was then turned to the abdomen where a roughly 5 mm incision was made in a vertical fold of the umbilicus allowing insertion of a 5 mm optical trocar under direct visualization without difficulty. A pneumoperitoneum was then instilled and Trendelenburg positioning utilized. A site was selected in the midline approximate 4-5 cm above the pubic symphysis where an 8 mm incision was made in the transverse plane allowing insertion of an 8 mm trocar under direct visualization without difficulty. The blunt probe was utilized to sweep the bowel from the pelvis and the findings are as noted above. The probe was replaced with a Filshie clip applicator which was utilized to place a Filshie clip firmly across the entire thickness of the isthmic portion of the fallopian tube on the right side where was firmly affixed approximately 2-3 cm from the cornu of uterus. A similar operation was carried out on the left side without difficulty. The remainder of the abdomen was explored and there was no ongoing pathology. The entire pneumoperitoneum was then evacuated through the 2 ports and the ports removed. The incisions were closed with interrupted subcuticular stitches of 4-0 Vicryl followed by half- inch Steri-Strips applied with Mastisol. The 2 incisions were infused with a total of 9 mL of quarter percent Marcaine without epinephrine. All sponge, instrument, needle counts were correct. Estimated blood loss for the case was less than 5 mL. There were no complications. The patient tolerated the procedure well and proceeded to the recovery room in stable condition.
[2019-11-10] MEDS: HYDROmorphone 0.5 MG/0.5 ML SYRINGE IVP PRN ×4 (10:02→10:28)
[2019-11-10 10:17] VITALS: TEMP 97.5
[2019-11-10] MEDS: LACTATED RINGERS 1,000 ML IV SCH ×2 (10:28→10:38)
[2019-11-10 13:11] VITALS: BP 125/60; PULSE 48; RESP 18
== END 2019-11-10 12:10 | disposition home or self-care (01) ==
LOC: OR 07:31
PROVIDERS: ATTEND Obstetrics & Gynecology
DX: Z30.2 Encounter for sterilization (principal); Z64.1 Problems related to multiparity; G43.909 Migraine, unspecified, not intractable, without status migrainosus; K21.9 Gastro-esophageal reflux disease without esophagitis; F17.200 Nicotine dependence, unspecified, uncomplicated; Z91.018 Allergy to other foods; Z98.890 Other specified postprocedural states
CPT/HCPCS: 81025; 58671; J2250; J1100; J2710; J2405; J2001; J3010; J1885; J1170 ×2; J0330; J2704

== ENCOUNTER 2020-04-28 10:41 | Emergency (ER) | payer OTHER ==
[2020-04-28 11:18] VITALS: RESP 18
[2020-04-28] MEDS ORDERED: ACET/COD 300 MG/30 MG STARTER PACK 6 TAB BTL PO STA (11:40)
[2020-04-28 11:50] LABS: Basophils # (A) 0.1 k/uL (0-0.2); Basophils % (A) 1 %; Eosinophils # (A) 0.5 k/uL (0-0.7); Eosinophils % (A) 4 %; HCT 41.5 % (34.0-46.0); HGB 14.3 gm/dL (11.4-16.0); Lymphocytes # (A) 1.6 k/uL (1.0-4.8); Lymphocytes % (A) 14 %; MCH 29.8 pg (25.0-35.0); MCHC 34.4 g/dL (31.0-37.0); MCV 86.6 fL (80.0-100.0); Mean Platelet Volume 9.6; Monocytes # (A) 0.6 k/uL (0-1.0); Monocytes % (A) 5 %; Neutrophils # (A) 8.5 k/uL (1.3-7.7); Neutrophils % (A) 75 %; Platelet Count 184 k/uL (150-450); RBC 4.79 m/uL (3.80-5.40); RDW 13.3 % (11.5-15.5); WBC 11.4 k/uL (3.8-10.6)
[2020-04-28 12:01] LABS: ALT 10 U/L (4-34); AST 14 U/L (14-36); African American GFR (CKD) >90 (>60 ml/min/1.73 sqM); Albumin 4.1 g/dL (3.5-5.0); Alkaline Phosphatase 77 U/L (38-126); Anion Gap 5 mmol/L; Blood Urea Nitrogen 8 mg/dL (7-17); Calcium 9.1 mg/dL (8.4-10.2); Carbon Dioxide 24 mmol/L (22-30); Chloride 110 mmol/L (98-107); Glucose 100 mg/dL (74-99); Non-African American GFR(CKD) >90 (>60 ml/min/1.73 sqM); Potassium 4.2 mmol/L (3.5-5.1); Sodium 139 mmol/L (137-145); Total Bilirubin 0.3 mg/dL (0.2-1.3); Total Protein 6.7 g/dL (6.3-8.2)
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
[2020-04-28 13:24] LABS: Appearance,Urine Clear (Clear); Bilirubin,Urine Negative (Negative); Blood,Urine Moderate (Negative); Color,Urine Light Yellow; Glucose,Urine (UA) Negative (Negative); Ketones,Urine Negative (Negative); Leukocyte Esterase,Urine Negative (Negative); Mucus,Urine Rare /hpf; Nitrite,Urine Negative (Negative); PH, Urine 6.5 (5.0-8.0); Protein,Urine Negative (Negative); Specific Gravity,Urine 1.009 (1.001-1.035); Squamous Epithelial Cell,Urine 1 /hpf (0-4); Urobilinogen,Urine <2.0 mg/dL (<2.0); WBC,Urine <1 /hpf (0-5)
--- NOTE | 2020-04-28 13:33 | US ---
EXAMINATION TYPE: US transvaginal DATE OF EXAM: 04/28/2020 COMPARISON: CT, US CLINICAL HISTORY: pain. Pelvic pain and AUB. Vaginal spotting x 4 days last week and recent heavy vag inal bleeding post PAP smear yesterday TECHNIQUE: TV. Date of LMP: 04/09/2020 EXAM MEASUREMENTS: Uterus: 9.5 x 6.0 x 4.6 cm Endometrial Stripe: 1.7 cm Right Ovary: not seen Left Ovary: 1.7 x 1.7 x 1.6 cm 1. Uterus: Anteverted 2. Endometrium: complex fluid area seen upper endometrium = with 2 echogenic foci seen within 3. Right Ovary: not seen 4. Left Ovary: small follicles Spectral, color and waveform doppler imaging shows good arterial and venous flow within the left ov domonique; there is no evidence for ovarian torsion. Right ovary is not included vascular assessment 5. Bilateral Adnexa: wnl 6. Posterior cul-de-sac: wnl IMPRESSION: 1. Endometrium is thickened measuring 1.7 cm and there is a complex fluid collection within the upper endometrium measuring 1.2 cm which is nonspecific. This could be related to hemorrhage or infectious etiology. Correlate with beta hCG to exclude early intrauterine or pseudogestational sac o f ectopic .
[2020-04-28 13:51] VITALS: BP 118/73; PULSE 54; TEMP 98
== END 2020-04-28 14:48 | disposition home or self-care (01) ==
LOC: EC 10:41
DX: N93.9 Abnormal uterine and vaginal bleeding, unspecified (principal); R10.2 Pelvic and perineal pain; F17.200 Nicotine dependence, unspecified, uncomplicated; Z91.018 Allergy to other foods; Z98.51 Tubal ligation status; Z87.42 Personal history of other diseases of the female genital tract
CPT/HCPCS: 36415; 76830; 80053; 81001; 81025; 84702; 85025; 93975; 93976; 99284

== ENCOUNTER → 2023-12-27 | Outpatient (CLI) | payer OTHER ==
--- NOTE | 2023-12-27 13:30 | US ---
EXAMINATION TYPE: US pelvic complete DATE OF EXAM: 12/27/2023 COMPARISON: US CLINICAL INDICATION: Female, 28 years old with history of R10.2 PELVIC PAIN; Pelvic pain, more on lef t side x 1 month TECHNIQUE: Transabdominal (TA). Transabdominal sonographic images of the pelvis were acquired. Date of LMP: Today EXAM MEASUREMENTS: Uterus: 10.8 x 3.8 x 5.7 cm Endometrial Stripe: 0.7 cm Right Ovary: 2.8 x 1.7 x 2.9 cm Left Ovary: 3.0 x 1.8 x 3.0 cm 1. Uterus: Anteverted wnl 2. Endometrium: wnl 3. Right Ovary: wnl 4. Left Ovary: wnl 5. Bilateral Adnexa: wnl 6. Posterior cul-de-sac: wnl IMPRESSION: No sonographic abnormality
[2023-12-27 18:20] LABS: Basophils # (A) 0.02 X 10*3/uL (0.00-0.10); Basophils % (A) 0.2 %; Eosinophils # (A) 0.04 X 10*3/uL (0.04-0.35); Eosinophils % (A) 0.5 %; HCT 38.5 % (37.2-46.3); HGB 12.5 g/dL (12.0-15.0); Lymphocytes # (A) 1.62 X 10*3/uL (0.90-5.00); Lymphocytes % (A) 19.4 %; MCH 29.5 pg (27.0-32.0); MCHC 32.5 g/dL (32.0-37.0); MCV 90.8 FL (80.0-97.0); Mean Platelet Volume 12.1 FL (9.5-12.2); Monocytes # (A) 0.59 X 10*3/uL (0.20-1.00); Monocytes % (A) 7.1 %; NRBC Per 100 WBC 0 X 10*3/uL (0.00-0.01); Neutrophils # (A) 6.04 X 10*3/uL (1.80-7.70); Neutrophils % (A) 72.6 %; Platelet Count 199 X 10*3/uL (140-440); RBC 4.24 X 10*6/uL (4.10-5.20); RDW 13.8 % (11.5-14.5); WBC 8.33 X 10*3/uL (4.50-10.00)
[2023-12-27 23:12] LABS: HIV 2 AB Non-Reactive (Non-Reactive); HIV AB P24 Non-Reactive (Non-Reactive); HIV P24 AG Non-Reactive (Non-Reactive)
== END | disposition home or self-care (01) ==
LOC: RADUSWWP 12:24
PROVIDERS: ATTEND Family Medicine
DX: Z11.3 Encounter for screening for infections with a predominantly sexual mode of transmission (principal); R10.2 Pelvic and perineal pain
CPT/HCPCS: 76856; 85025; 86140; 86780; 87390